=== PATIENT | male | born 1940 | race Hispanic/Latino ===

== ENCOUNTER → 2023-03-09 | Outpatient (CLI) | payer BC, MEDICARE | END | disposition home or self-care (01) | LOC: SHCH 10:37 | PROVIDERS: ATTEND Internal Medicine Cardiovascular Disease | DX: I65.23 Occlusion and stenosis of bilateral carotid arteries (principal) | CPT/HCPCS: 93880 ==

== ENCOUNTER → 2024-01-07 | Outpatient (CLI) | payer BC, MEDICARE | END | disposition home or self-care (01) | LOC: SHCH 13:55 | PROVIDERS: ATTEND Internal Medicine Cardiovascular Disease | DX: I35.0 Nonrheumatic aortic (valve) stenosis (principal); R01.1 Cardiac murmur, unspecified | CPT/HCPCS: 93306 ==

== ENCOUNTER 2024-08-24 07:32 | Emergency (ER) | payer MEDICARE ==
[~2024-08-24] VITALS: Ht 170.2 cm; Wt 99.8 kg
[~2024-08-24 07:32] MED LIST: AEC81 PO; ALLO100T PO; DOXA2TAB2 PO; FURO20TA6 PO; LOSA100T59 PO; METO-391 PO; SIMV-43 PO
[2024-08-24 08:11] LABS: BASOPHILS # (AUTO) 0.04 K/uL (0.00-0.20); BASOPHILS % (AUTO) 0.5 % (0.0-5.0); EOSINOPHILS # (AUTO) 0.24 K/uL (0.00-0.70); EOSINOPHILS % (AUTO) 2.8 % (0.0-8.0); HEMATOCRIT 28.6 % (42-54); IMMATURE GRANULOCYTE ABSOLUTE 0.08 K/uL (0-1); LYMPHOCYTES # (AUTO) 1.7 K/uL (1.0-4.8); LYMPHOCYTES % (AUTO) 19.9 % (21.0-51.0); MEAN CORPUSCULAR HEMOGLOBIN 31.4 pg (27.0-33.0); MEAN CORPUSCULAR HGB CONC 31.8 g/dL (32.0-36.0); MEAN CORPUSCULAR VOLUME 98.6 fL (79-99); MONOCYTES # (AUTO) 0.8 K/uL (0.1-1.0); NEUTROPHILS # (AUTO) 5.8 K/uL (1.8-7.7); NEUTROPHILS % (AUTO) 66.9 % (40.0-77.0); PLATELET COUNT (AUTO) 298 K/uL (130-400); RED CELL DISTRIBUTION WIDTH 13.9 % (11.0-15.5); WHITE BLOOD COUNT (AUTO) 8.7 K/uL (4.8-10.8)
[2024-08-24 08:24] LABS: CREATININE 1.3 mg/dL (0.5-1.3); POTASSIUM 4.4 mmol/L (3.5-5.1)
[2024-08-24 08:29] LABS: ALBUMIN 2.1 g/dL (3.5-5.0); BILIRUBIN,TOTAL 0.3 mg/dL (0.2-1.0)
[2024-08-24 09:00] VITALS: BP 141/63; PULSE 73; RESP 18; TEMP 98.2; O2SAT 99
== END 2024-08-24 09:03 | disposition home or self-care (01) ==
LOC: EDH 07:32
DX: R60.0 Localized edema (principal); E78.00 Pure hypercholesterolemia, unspecified; I10 Essential (primary) hypertension; Z79.82 Long term (current) use of aspirin; Z79.899 Other long term (current) drug therapy; Z96.651 Presence of right artificial knee joint
CPT/HCPCS: 36415; 80053; 85025

== ENCOUNTER → 2024-12-18 | Outpatient (CLI) | payer MEDICARE ==
--- NOTE | 2024-12-20 09:33 | HMCSR ---
APPROVED REPORT EXAM: Two-dimensional and M-mode echocardiogram with Doppler and color Doppler. INDICATION ICD: I10.0 Essential (primary) Hypertension 2D Dimensions RVDd3.8 cmLVEF(%)49.7 (>50%)LVED Vol(simp.)127.0 mL IVSd1.2 (0.7-1.1cm)FS(%)25 %LVES Vol(simp.)58.0 mL LVDd4.2 (3.8-5.6cm)Ao Root(2D)3.4 (2.0-3.7cm)LVEF(%, simp.)54 % PWd1.3 (0.7-1.1cm)LVOT diam2.0 (1.8-2.4cm)LA ESV INDEX (BP)27.92 mL/m2 LVDs3.2 (2.5-4.0cm)IVC diam1.9 cm Aortic Valve AoV Vmax2.9 m/Alejandro Peak GR33.1 mmHgLVOT Vmax1.3 m/s AoV VTI0.6 mAo Mean GR18.9 mmHgLVOT VTI0.30 m ONESIMO (VMAX)1.6 cm2AVA (VTI) 1.6 cm2 Mitral Valve MV E Twla081.2 cm/sDECEL Ojuu591 ms MV A Vmax84.3 cm/sP 1/2 T52 ms E/A ratio1.2MVA (PHT)4.2 cm2 MR Max PG86 mmHg TDI E/E' Mjrszs68.2E/E' Hgpgsoe49.0 Pulmonary Valve PV Vmax1.4 m/sPV VTI0.28 mPV Mean GR4 mmHg PV Peak GR8.1 mmHg Tricuspid Valve TR Vmax2.6 m/sRAP (EST) 8 tlSqIVCQ55.4 mmHg TR Peak GR26.4 mmHg Left Ventricle Left ventricular cavity size is normal. There is normal LV segmental wall motion. There is mild auugsto ntric left ventricular hypertrophy. LVEF is 50-55%. Increased E/E suggestive of increased left ventr icular end diastolic pressure. Right Ventricle The right ventricle is normal size. The right ventricular systolic function is normal. Atria The left atrium size is normal. The right atrium size is normal. Aortic Valve Aortic valve not well visualized, appears trileaflet and sclerotic. Aortic valve is calcified. Trace aortic regurgitation. Calculated aortic valve area is 1.6 cm2 with maximum pressure gradient of 33.1 mmHg and mean pressure gradient of 19 mmHg. There is no aortic valvular stenosis. There is mild valvu lar aortic stenosis. Mitral Valve Mitral valve leaflets are mildly sclerotic but open well. Mitral regurgitation is trace. There is no mitral valve stenosis. Tricuspid Valve The tricuspid valve leaflets appear normal. There is trace to mild tricuspid regurgitation. Right miguel ángel tricular systolic pressure is estimated at 30-40 mmHg. Pulmonic Valve Pulmonic valve is not well visualized. There is trace pulmonic valvular regurgitation. Great Vessels The aortic root is normal in size. IVC is normal in size and collapses <50% with inspiration. Pericardium No pericardial effusion. Other Information Quality : Average Conclusion Left ventricular cavity size is normal. LVEF is 50-55% with normal LV segmental wall motion. There is mild concentric left ventricular hypertrophy. Increased E/E suggestive of increased left ventricular end diastolic pressure. The right ventricular systolic function is normal. Both atria are normal in size. Mild aortic stenosis (mean gradient 19mmHg). No pericardial effusion.
== END | disposition home or self-care (01) ==
LOC: SHCH 13:02
PROVIDERS: ATTEND Student in an Organized Health Care Education/Training Program
DX: I08.3 Combined rheumatic disorders of mitral, aortic and tricuspid valves (principal); I10 Essential (primary) hypertension
CPT/HCPCS: 93306